=== PATIENT | female | born 1990 | race Caucasian/White ===

== ENCOUNTER → 2017-01-04 | Outpatient (CLI) | payer OTHER ==
[~2017-01-04] MED LIST: ALBUAER19 INH; DOXY100C2 PO; MEDR150I IM; OXYC7.5T78 PO
== END | disposition home or self-care (01) ==
LOC: C.PAPS 11:23
PROVIDERS: ATTEND Obstetrics & Gynecology
DX: Z34.01 Encounter for supervision of normal first pregnancy, first trimester (principal); R87.610 Atypical squamous cells of undetermined significance on cytologic smear of cervix (ASC-US)

== ENCOUNTER → 2017-02-01 | Outpatient (CLI) | payer OTHER ==
[2017-02-01 17:50] LABS: GTGD 50 Grams
== END | disposition home or self-care (01) ==
LOC: C.LAB1850 16:50
PROVIDERS: ATTEND Obstetrics & Gynecology
DX: Z34.02 Encounter for supervision of normal first pregnancy, second trimester (principal)

== ENCOUNTER → 2017-02-12 | Outpatient (CLI) | payer OTHER | END | disposition home or self-care (01) | LOC: C.LAB 09:32 | PROVIDERS: ATTEND Obstetrics & Gynecology | DX: O28.1 Abnormal biochemical finding on antenatal screening of mother (principal) ==